=== PATIENT | male | born 1955 | race Caucasian/White ===

== ENCOUNTER 2023-11-08 14:39 | Outpatient (CLI) | payer MEDICARE, SELFPAY ==
--- NOTE | ~2023-11-08 | XR_ITS ---
3 VIEWS LUMBAR SPINE Ordering provider: Doug Chu MD History: . lbp no injury . Comparison: None. FINDINGS: VERTEBRAL BODIES: Indeterminate age compression fracture is seen above the level of L2 most likely ac [place] with loss of volume of about 50%. MRI or CT evaluation advised. Anterolisthesis seen at the level of L5-S1. Levoscoliosis. Degenerative changes of the spine.. DISK SPACES: Degenerative disc disease at the level of L5-S1 with disc space narrowing. Multilevel fa cet joint disease. SOFT TISSUES: Normal. IMPRESSION: Compression fracture of L4 most likely acute. Anterolisthesis at the level of L5-S1. Degenerative disc disease at the level of L5-S1 with multilevel facet joint disease. Reviewed, dictated and finalized at location A. IMPRESSION: Compression fracture of L4 most likely acute. Anterolisthesis at the level of L5-S1. Degenerative disc disease at the level of L5-S1 with multilevel facet joint dis ease.
--- NOTE | ~2023-11-08 | MR_ITS ---
EXAMINATION: MR lumbar spine wo con DATE: 11/08/2023 15:23 INDICATION: Lumbar radiculopathy. TECHNIQUE: Magnetic resonance imaging (MRI) of the lumbar spine was performed without intravenous con trast. Sequences included sagittal T2-weighted FSE, sagittal T2-weighted FS FSE, sagittal T1-weighted FSE, and axial T2-weighted FSE. COMPARISON: Lumbar spine radiographs 11/08/2023 FINDINGS: There is 14 degrees levoscoliosis of lumbar spine. There are chronic bilateral L5 pars defe cts. There is 11 mm anterolisthesis of L5 on S1. There is a burst fracture of L4 with 3/5 loss of hei ght, retropulsion of bone 2 mm into central spinal canal, and edema-like marrow signal intensity. The re is mild chronic height loss of T12, L1, L2, L3, and L5 vertebral bodies. There is severely decreas ed disc height at L2-L3 and L5-S1. The distal spinal cord signal intensity is normal. The conus medul yandel is at L1-L2. The following disc levels are specifically discussed: L1-L2: The disc is bulging. There is mild bilateral facet joint osteoarthritis. There is mild left ne ural foraminal stenosis. There is mild central canal stenosis. L2-L3: The disc is bulging and has an annular fissure. There is mild bilateral facet joint osteoarthr itis. There is moderate right and mild left neural foraminal stenosis. There is mild central canal st enosis. L3-L4: The disc is bulging. There is severe bilateral facet joint osteoarthritis. There is mild right and moderate left neural foraminal stenosis. There is mild central canal stenosis. L4-L5: The disc is bulging and has an annular fissure. There is severe bilateral facet joint osteoart hritis. There is moderate right and mild left neural foraminal stenosis. There is mild central canal stenosis. L5-S1: The disc does not extend beyond the endplate margin. There is severe bilateral facet joint ost eoarthritis. There is moderate bilateral neural foraminal stenosis. There is no central canal stenosi s. IMPRESSION: 1. Acute versus subacute L4 burst fracture. 2. Chronic bilateral L5 pars defects with grade 2 anterolisthesis of L5 on S1. 3. Severe lumbar spondylosis. Reviewed, dictated and finalized at location A.
== END 2023-11-08 14:40 ==
PROVIDERS: Visit Provider Pain Medicine Pain Medicine
DX: M47.26 Other spondylosis with radiculopathy, lumbar region (principal); S32.041D Stable burst fracture of fourth lumbar vertebra, subsequent encounter for fracture with routine healing; X58.XXXD Exposure to other specified factors, subsequent encounter
CPT/HCPCS: 72110; 72148

== ENCOUNTER 2023-11-13 10:13 | Outpatient (CLI) | payer MEDICARE, SELFPAY ==
--- NOTE | ~2023-11-13 | XR_ITS ---
Lumbosacral Spine: AP and lateral views Clinical History: Osteoporosis COMPARISON: 11/08/2023 Findings: There is severe compression fracture of L4, with progressive loss of height since prior exa m. Chronic minimal anterior wedging deformity of L1. Severe facet arthropathy from L3 through S1 is u nchanged. Stable anterolisthesis of L5 over S1. The sacroiliac joints are normally outlined. Impression: Progressive loss of height of L4, now with severe loss of height. Stable chronic mild anterior wedging deformity of L1. Stable anterolisthesis of L5 over S1. L5 pars interarticularis defects are not excluded. Advanced spondylosis of the lower lumbar spine is unchanged. Reviewed, dictated and finalized at location . Impression: Progressive loss of height of L4, now with severe loss of height. Stable chronic mild anterior wedging deformity of L1. Stable anterolisthesis of L5 over S1. L5 pars interarticularis defects are not excluded. Advanced spondylosis of the lower lumbar spine is unchanged.
== END 2023-11-13 10:14 ==
PROVIDERS: Visit Provider Pain Medicine Pain Medicine
DX: M80.08XA Age-related osteoporosis with current pathological fracture, vertebra(e), initial encounter for fracture (principal); M47.816 Spondylosis without myelopathy or radiculopathy, lumbar region
CPT/HCPCS: 72100

== ENCOUNTER 2023-12-26 15:05 | Outpatient (CLI) | payer MEDICARE, SELFPAY ==
--- NOTE | ~2023-12-26 | XR_ITS ---
3 VIEWS LUMBAR SPINE Ordering provider: Doug Chu MD History: . Age related osteoPOROSIS W/CURRENT PATHOLOGICAL FX . Comparison: None. FINDINGS: VERTEBRAL BODIES:Compression fracture of L4 is noted with loss of height of about 70%. This is most l ikely chronic. Slight loss of height in L3 is also noted. Anterolisthesis at the level of L5-S1 Other an[place], No visible fracture or subluxation. DISK SPACES: Narrowing of the disc L2-L3 and L5-S1. Facet joint disease at the level of L5-S1. SOFT TISSUES: Aortic atherosclerotic changes. IMPRESSION: No acute osseous abnormality lumbar spine. Anterolisthesis at the level of L5-S1. Compression fracture most likely chronic at the level of L4. Reviewed, dictated and finalized at location A.
== END 2023-12-26 15:06 | disposition home or self-care (01) ==
PROVIDERS: Visit Provider Pain Medicine Pain Medicine
DX: M80.08XS Age-related osteoporosis with current pathological fracture, vertebra(e), sequela (principal); S32.040A Wedge compression fracture of fourth lumbar vertebra, initial encounter for closed fracture; X58.XXXA Exposure to other specified factors, initial encounter
CPT/HCPCS: 72100